=== PATIENT | female | born 1965 | race Hispanic/Latino ===

== ENCOUNTER 2019-12-22 13:42 | Inpatient (IN) | payer MEDICAID, SELFPAY ==
[2019-12-22] MEDS ORDERED: Iopamidol-370 76% 500 ML 1 ML ONE (13:45)
--- NOTE | 2019-12-22 14:51 | RAD ---
EXAM: Chest one view: HISTORY: Shortness of breath swelling and distention of the abdomen COMPARISON: None FINDINGS: Heart size: Within normal limits. Lungs: Clear of acute process. No evidence for confluent pneumonia, pleural effusion, acute edema, or pneumothorax, or other signifi cant acute process. IMPRESSION: No significant acute intrathoracic disease.
[2019-12-22] MEDS ORDERED: Fentanyl 100 MCG/2 ML VIAL ONE (14:54)
[2019-12-22] MEDS ORDERED: Ondansetron PF 4 MG/2 ML Vial ONE (14:54)
[2019-12-22 14:56] LABS: #Eosinphils 0.1 thou/uL (0.0-0.7); #Lymphocytes 0.8 thou/uL (1.20-3.40); #Monocytes 0.4 thou/uL (0.11-0.59); #Neutrophils 1.7 thou/uL (1.40-6.50); %Basophils 0.2 % (0.0-1.0); %Eosinophils 4.4 % (0.0-10.0); %Lymphocytes 25.5 % (21.0-51.0); %Monocytes 14.5 % (0.0-10.0); %Neutrophils 55.4 % (42.0-75.0); Hemoglobin 11.3 g/dL (12.0-16.0); INR-International Normal Ratio 1.2; Mean Corpuscular HGB CONC 32.9 g/dL (32.0-36.0); Mean Corpuscular Hemoglobin 29.6 pg (27.0-31.0); Mean Corpuscular Volume 89.9 fL (78.0-98.0); Mean Platelet Volume 9.4 fL (7.4-10.4); Platelet Count 71 thou/uL (130-400); Prothrombin Time 15.6 SEC (12.0-14.7); RBC Distribution Width 14.5 % (11.5-14.5); Red Blood Cell (RBC) Count 3.81 mill/uL (4.20-5.40)
[2019-12-22 15:04] LABS: Platelet Morphology Comment Appears Decreased; RBC Morphology Normal
[2019-12-22 15:12] LABS: ALT (SGPT) 29 U/L (8-55); AST (SGOT) 41 U/L (5-34); Albumin 3.3 g/dL (3.5-5.0); Alkaline Phosphatase 143 U/L (40-110); Anion Gap 8 mmol/L (10-20); BUN (Urea Nitrogen) 14 mg/dL (9.8-20.1); Bilirubin, Total 1.3 mg/dL (0.2-1.2); Calc. Creatinine Clearance 0 mL/min (70-130); Calcium 8.9 mg/dL (7.8-10.44); Carbon Dioxide 27 mmol/L (22-29); Chloride 107 mmol/L (98-107); Estimated GFR-MDRD Greater than 90; Globulin 4.4 g/dL (2.4-3.5); Glucose 124 mg/dL (70-105); Lipase 30 U/L (8-78); Potassium 3.9 mmol/L (3.5-5.1); Protein, Total 7.7 g/dL (6.0-8.3); Sodium 138 mmol/L (136-145)
[2019-12-22 15:35] LABS: Bacteria/HPF 4+ HPF (None Seen); Bilirubin Negative (Negative); Blood, Urine Negative (Negative); Clarity Clear (Clear); Glucose, Urine (Dipstick) 50 mg/dL (Negative); Leukocyte 75 Leu/uL (Negative); Mucous/LPF 1+ LPF (<2+); Nitrite 2+ (Negative); Protein, Urine (Dipstick) 30 mg/dL (Neg-Trace); RBC/HPF 0-3 HPF (0-3); Urobilinogen Normal mg/dL (Less than 2)
--- NOTE | 2019-12-22 16:11 | CT ---
CT abdomen and pelvis with IV contrast HISTORY: Abdomen pain. Abdominal swelling. FINDINGS: At the right anterolateral lung base are 3 tiny nonspecific subpleural nodules without calc ification. Single tiny nonspecific subpleural nodule at the right posterolateral lung base. Gallbladder is distended and contains irregular hyperdense material. No significant gallbladder wall thickening. Liver is somewhat small with a nodular contour. Spleen measures up to 13.1 cm. Small amount of free fluid throughout the abdomen and pelvis. No evidence of bowel obstruction. Nonenlarged reactive appearing lymph nodes throughout the retroperi toneum. Urinary bladder is decompressed. Degenerative changes throughout the lumbar spine. IMPRESSION: Cirrhosis. Findings of portal venous hypertension include splenomegaly and small amount o f ascites. The fluid does not significantly contribute to the abdominal distention. Cholelithiasis.
[2019-12-22 18:46] VITALS: BMI 31.8
[2019-12-22] MEDS ORDERED: Morphine 2 MG/ML SYRINGE SLOW IVP SCH (20:45)
[2019-12-22] MEDS ORDERED: hydrALAZINE 20 MG/ML VIAL SLOW IVP PRN (21:39)
[2019-12-22] MEDS ORDERED: Dextrose 50% Abboject 50 ML SYRINGE SLOW IVP PRN (21:39)
[2019-12-22] MEDS ORDERED: Ondansetron PF 4 MG/2 ML Vial IVP PRN (21:39)
[2019-12-22] MEDS ORDERED: Senokot S 8.6-50 MG TAB PO PRN (21:39)
[2019-12-22] MEDS ORDERED: Dextrose 5% in Water 1,000 ML IV PRN (21:39)
[2019-12-22] MEDS ORDERED: Bisacodyl 10 MG SUPP PR PRN (21:39)
[2019-12-22] MEDS ORDERED: HumaLOG 300 UNITS/3 ML VIAL SC PRN (21:39)
[2019-12-22] MEDS ORDERED: Polyethylene Glycol 3350 17 GM Packet PO SCH (22:00)
[2019-12-22] MEDS: Ondansetron ODT 4 MG TAB PO PRN (22:36)
--- NOTE | 2019-12-23 01:19 | HP ---
PRIMARY CARE PROVIDER: Dr. Perales in [place], [place]. CHIEF COMPLAINT: Abdominal distention. HISTORY OF PRESENT ILLNESS: This is a 54-year-old female, who presents to [facility] Emergency Department complaining of approximate 2-month history of progressive abdominal pain, distention, and bloating. The patient states the symptoms began somewhat insidiously with increasing abdominal distention that progressed, worsening in the last 24 hours. The patient denied any prominent diarrhea, fever, chills, documented travel history, or family members with similar symptoms. The patient took [id number] medication for attempted relief, but the patient states that the abdominal distention became to such an extent she was having difficulty talking due to shortness of breath and difficulty eating and losing her appetite. The patient feels like her last documented weight was in the 180 range at her last primary care provider's visit in the last month and was documented nearly 200 pounds during this admission. The patient denies any difficulty with urination, but admits to constipation with difficulty having bowel movements. The patient denied any hematemesis or hemoptysis or melena. The patient does admit to long-standing diabetes mellitus, treated with metformin over a 10-year period. The patient denied any history of viral exposure, hepatitis, or previous blood transfusions. The patient does admit to drinking alcohol on approximate weekly basis, but not too excess. The patient denies any strong family history of liver disorders or colon cancer. The patient denied any nausea, vomiting, or diarrhea. In the emergency room, the patient underwent general evaluation including CT imaging of the abdomen and pelvis showing evidence of cirrhotic changes to the liver with small amount of ascites. The patient was also noted with splenomegaly. Screening metabolic survey showed mild transaminitis and the patient was treated with fentanyl and Zofran in the emergency room. The patient was referred to the Hospitalist Service for further evaluation for potential cirrhosis. PAST MEDICAL HISTORY: 1. Diabetes mellitus type 2, on oral hypoglycemics with metformin. 2. Hypertension, treated with lisinopril. PAST SURGICAL HISTORY: Status post left rotator cuff repair. CURRENT MEDICATIONS: 1. Lisinopril 40 mg p.o. daily. 2. Metformin 500 mg p.o. b.i.d. ALLERGIES: TO TRAMADOL AND TYLENOL WITH CODEINE. FAMILY HISTORY: Mother with hypertension and diabetes mellitus. SOCIAL HISTORY: Resides in [place], [place]. Single. Accompanied by her significant other. No tobacco or illicit drug use. Drinks socially. Works at a convenience store. REVIEW OF SYSTEMS: CONSTITUTIONAL: Negative for weight loss or gain, ability to conduct usual activities. SKIN: Negative for rash, itching. EYES: Negative for double vision, pain. ENT/MOUTH: Negative for nose bleeding, neck stiffness, pain, tenderness. CARDIOVASCULAR: Negative for palpitations, dyspnea on exertion, orthopnea. RESPIRATORY: Negative for shortness of breath, wheezing, cough, hemoptysis, fever or night sweats. GASTROINTESTINAL: Negative for poor appetite, abdominal pain, heartburn, nausea, vomiting, constipation, or diarrhea. GENITOURINARY: Negative for urgency, frequency, dysuria, nocturia. MUSCULOSKELETAL: Negative for pain, swelling. NEUROLOGIC/PSYCHIATRIC: Negative for anxiety, depression. ALLERGY/IMMUNOLOGIC: Negative for skin rash, bleeding tendency. Otherwise negative except as stated per HPI. PHYSICAL EXAMINATION: VITAL SIGNS: On admission, blood pressure 161/89, pulse 72, respiratory rate 18, temperature 98.1 degrees Fahrenheit, O2 saturation 99% on room air. GENERAL APPEARANCE: This is a 54-year-old female, alert and oriented x3, pleasant, responsive, in no acute distress. HEENT: Pupils are equal, round, reactive to light and accommodation. Extraocular muscles are intact. No scleral icterus. No conjunctival injection. Nares patent. OP is clear. Teeth in fair repair. NECK: Supple. No cervical adenopathy. No thyromegaly. No carotid bruits. No JVD appreciated. Cervical spine with full active and passive range of motion. No meningeal signs noted. CHEST: Lungs are clear to auscultation bilaterally. CARDIOVASCULAR: S1, S2 without noted murmur, rub, or gallop. ABDOMEN: Distended with tenderness to palpation diffusely. Landmarks difficult to palpate due to patient's body habitus. No rebound or guarding noted. Bowel sounds are positive in all 4 quadrants. EXTREMITIES: Warm and dry with fair turgor. Mild edema to the lower extremities bilaterally to the proximal shins. Pulses palpable distally at the dorsalis pedis, posterior tibial, and popliteal arteries bilaterally. Capillary refill less than 2 seconds. NEUROLOGIC: Cranial nerves 2 through 12 are grossly intact. No focal or lateralizing signs appreciated. PERTINENT LABORATORY AND X-RAY FINDINGS: Sodium 138, potassium 3.9, chloride 107, CO2 of 27, BUN 14, creatinine 0.67, glucose 124, calcium 8.9, total bilirubin 1.3, AST 41, ALT of 29, alkaline phosphatase 143. Troponin I negative x1. BNP 77. Albumin 3.3. Lipase 30. TSH 0.79. CBC showed a white blood cell count of 3.0, hemoglobin 11.3, hematocrit 34.3, platelet count 71,000 with 55% neutrophils. PT 15.6, INR 1.2, PTT 34.0. Urinalysis positive for protein, 2+ nitrite, and leukocyte esterase positive, 4 to 6 squamous epithelial cells per high-power field. CT of the abdomen and pelvis dated 12/22/2019 showed liver contour concerning for cirrhosis. Portal venous hypertension noted with splenomegaly and small amount of ascites. Portable chest x-ray dated 12/22/2019 showed no acute cardiopulmonary process. EKG dated 12/22/2019 by my interpretation shows sinus mechanism with heart rates in the 60s. Normal R-wave progression noted in the precordial leads. Normal axis. No acute ST-T wave changes appreciated. ASSESSMENT AND PLAN: 1. New onset cirrhosis. Suspected given CT imaging of the abdomen and pelvis. We will check hepatitis A, B, and C panel, ammonia, folate, B12, hemoglobin A1c, and lipid profile. We will consult GI Service in the a.m. for any further recommendations and consideration for liver biopsy. Hold metformin. 2. Transaminitis. Suspect secondary to #1. See #1 above for management. Hold metformin. Repeat liver function tests in the a.m. 3. Thrombocytopenia. Suspect secondary to #1. Avoid anticoagulation and NSAIDs. Repeat platelet count in the a.m. 4. Diabetes mellitus type 2. Insulin sliding scale for reflexive coverage. Check A1c level in the a.m. Serial Accu-Cheks before meals and at bedtime. ADA diet. 5. Hypertension. Resume lisinopril 40 mg p.o. daily. Serial blood pressure monitoring. 6. Prophylaxis. SCDs while in bed. Pepcid 20 mg p.o. b.i.d. CODE STATUS: Full. Surrogate medical decision maker is Leslye Tsang. Job ID: [id number]
[2019-12-23 04:12] LABS: Hemoglobin A1c 6.3 % (4.0-6.0)
[2019-12-23 04:17] LABS: Eosinophils 7 % (0-10); Hemoglobin 10.5 g/dL (12.0-16.0); Lymphocytes 37 % (21-51); MDiff Complete? YES; Mean Corpuscular HGB CONC 33.5 g/dL (32.0-36.0); Mean Corpuscular Hemoglobin 29.9 pg (27.0-31.0); Mean Corpuscular Volume 89.4 fL (78.0-98.0); Mean Platelet Volume 9.7 fL (7.4-10.4); Monocytes 15 % (0-10); Neutrophil 41 % (42-75); Platelet Count 60 thou/uL (130-400); Platelet Morphology Comment Appears Decreased; RBC Distribution Width 14.4 % (11.5-14.5)
[2019-12-23 04:26] LABS: ALT (SGPT) 25 U/L (8-55); AST (SGOT) 38 U/L (5-34); Albumin 2.8 g/dL (3.5-5.0); Alkaline Phosphatase 118 U/L (40-110); Anion Gap 9 mmol/L (10-20); BUN (Urea Nitrogen) 14 mg/dL (9.8-20.1); Bilirubin, Total 1.1 mg/dL (0.2-1.2); Calc. Creatinine Clearance 135 mL/min (70-130); Calcium 8.3 mg/dL (7.8-10.44); Carbon Dioxide 23 mmol/L (22-29); Cardiac Risk 4.6 (Less than 4.5); Chloride 109 mmol/L (98-107); Cholesterol 158 mg/dl (< 200 Desired); Estimated GFR-MDRD Greater than 90; Globulin 3.9 g/dL (2.4-3.5); Glucose 124 mg/dL (70-105); HDL Cholesterol 34 mg/dL (>60 Neg Risk); LDL Cholesterol, Calculated 99 mg/dL; Potassium 3.9 mmol/L (3.5-5.1); Protein, Total 6.7 g/dL (6.0-8.3); Sodium 137 mmol/L (136-145); Triglycerides 125 mg/dL (Less than 150)
[2019-12-23 04:50] LABS: HBCM Index 0.13 S/CO (0-0.79); HBSAg Index 0.23 S/CO (0-0.99); Hep A IgM AB Non-Reactive (NonReactive); Hep A IgM S/CO 0.27 S/CO (0-0.79); Hep B Surf Ag Non-Reactive S/CO (NonReactive); Hep C IgG Ab Non-Reactive (NonReactive); Hep C Index 0.18 S/CO (0-0.79); Hepatitis B Core IgM Abs Non-Reactive (NonReactive)
[2019-12-23] MEDS: Morphine 2 MG/ML SYRINGE SLOW IVP PRN ×2 (05:02→19:52)
--- NOTE | 2019-12-23 08:19 | ULT ---
HEPATIC ULTRASOUND WITH COLOR AND SPECTRAL DOPPLER IMAGING: HISTORY: Ascites, abdominal pain. FINDINGS: Fairly extensive ascites. Very abnormal heterogeneous echotexture of the liver with peripheral nodul arity certainly concerning for cirrhosis. Multiple gallstones in the gallbladder with a positive Mur phy's sign. Common bile duct 0.4 cm. Vascular duplex demonstrates antegrade hepatic and portal venous flow. IMPRESSION: 1. Abnormal liver, evidence for cirrhosis. 2. Ascites. 3. Multiple cholelithiasis with positive Briceno's sign. Antegrade hepatic and portal venous flow. POS: TPC
[2019-12-23] MEDS: Lisinopril 10 MG TAB PO SCH (08:23)
[2019-12-23] MEDS: Famotidine 20 MG TAB PO SCH ×2 (08:24→19:53)
[2019-12-23] MEDS: diphenhydrAMINE 50 MG CAP PO PRN (08:24)
[2019-12-23] MEDS ORDERED: Polyethylene Glycol 3350 17 GM Packet PO SCH (09:00)
[2019-12-23] MEDS ORDERED: Albumin 25% 25 GM/100 ML BOT IVPB SCH (12:46)
[2019-12-23] MEDS ORDERED: Sodium Bicarbonate 2.5 MEQ/5 ML VIAL ONE (13:23)
[2019-12-23] MEDS ORDERED: Lidocaine 1% PF 5 ML VIAL ONE (13:23)
--- NOTE | 2019-12-23 13:53 | ULT ---
PREPROCEDURE DIAGNOSIS: Ascites POST PROCEDURE DIAGNOSIS: Same PROCEDURE: Ultrasound-guided paracentesis FIELD CANE SCALER: [place]ha ANESTHESIA: 7 mL of buffered 1% lidocaine. SPECIMEN: 2.6 L of straw-colored fluid TECHNIQUE: Prior to the procedure, the risks and benefits of an ultrasound guided paracentesis were explained to the patient which consented fully to the procedure. The area of the largest fluid collection was seen in the right mid abdomen. This area was prepped and draped in the usual sterile fashion. Lidocaine was used to anesthetize the skin and soft tissues down towards the peritoneal cavity. The p eritoneum was anesthetized. A small skin incision was made for passage of a 15 cm Next 1 Interactive needle and catheter. This device was then placed using ultrasound guidance into the peritoneal cavity. The needle was removed after return of fluid. The catheter was then connected to multiple Vacutainer bottles. A total of 2.6 L was removed. No residual fluid is seen in this region of the peritoneal cavity. IMPRESSION: Status post successful ultrasound-guided paracentesis
--- NOTE | 2019-12-23 14:14 | PDOC.HOSPP ---
- Subjective Encounter Date: 12/23/19 Encounter Time: 08:00 Subjective: no overnight events. This morning, feels about the same regarding abdominal distention and pressure, and complains of mild shortness of breath. Has no other complains. - Objective Vital Signs & Weight: Vital Signs (12 hours) Temp Pulse Resp BP BP BP Pulse Ox 12/23/19 11:54 98.5 F 66 18 119/58 L 97 12/23/19 08:23 136/74 12/23/19 08:00 97.8 F 69 18 136/74 69 L 12/23/19 04:00 97.9 F 66 16 162/72 H 97 Weight Admit Weight 191 lb 2 oz Weight 191 lb 2 oz I&O: 12/22/19 12/23/19 12/24/19 06:59 06:59 06:59 Intake Total 360 Balance 360 Result Diagrams: 12/23/19 03:56 12/23/19 03:56 Additional Labs: Accuchecks 12/23/19 12/23/19 12/22/19 11:13 05:35 21:05 POC Glucose 124 H 126 H 161 H Hospitalist ROS - Review of Systems Constitutional: denies: fever, chills, sweats, weakness, malaise, other Respiratory: denies: cough, dry, shortness of breath, hemoptysis, SOB with excertion, pleuritic pain, sputum, wheezing, other Cardiovascular: denies: chest pain, palpitations, orthopnea, paroxysmal noc. dyspnea, edema, light headedness, other Gastrointestinal: denies: nausea, vomiting, abdominal pain, diarrhea, constipation, melena, hematochezia (complaints of abdominal pressure rather than pain) Genitourinary: denies: dysuria, frequency, incontinence, hematuria Skin: denies: rash Neurological: denies: weakness, numbness, incoordination, change in speech, confusion - Medication Medications: Active Medications Generic Name Dose Route Start Last Admin Trade Name Freq PRN Reason Stop Dose Admin Diphenhydramine HCl 50 mg 12/23/19 08:01 12/23/19 08:24 Benadryl PO 50 mg Q8H PRN Administration Itching & Insomnia Famotidine 20 mg 12/23/19 09:00 12/23/19 08:24 Pepcid PO 20 mg BID MAK Administration Lisinopril 30 mg 12/23/19 09:00 12/23/19 08:23 Zestril PO 30 mg DAILY MAK Administration Morphine Sulfate 2 mg 12/22/19 21:39 12/23/19 05:02 Morphine SLOW IVP 2 mg Q4H PRN Administration Abdominal Distention Ondansetron HCl 4 mg 12/22/19 21:39 12/22/19 22:36 Zofran Odt PO 4 mg Q6H PRN Administration Nausea/Vomiting Polyethylene Glycol 17 gm 12/23/19 09:00 12/23/19 09:00 Miralax PO Not Given DAILY MAK - Exam General Appearance: NAD, awake alert Eye: PERRL, anicteric sclera ENT: normocephalic atraumatic, moist mucosa Neck: no JVD Heart: RRR, no murmur, no gallops, no rubs Respiratory: CTAB, no wheezes, no rales, no ronchi, normal chest expansion, no tachypnea Gastrointestinal: soft, non-tender, normal bowel sounds Gastrointestinal - other findings: shifting dulness, significantly distended Extremities: 1+ LE edema Neurological: cranial nerve grossly intact, no weakness, no focal deficits, no new deficit Musculoskeletal: normal tone, normal strength, no muscle wasting Psychiatric: normal affect, normal behavior, A&O x 3 Hosp A/P - Plan #cirrhosis #ascites -no conern for SBP -complains of progressively worsening shortness of breath -hepatitis panel -ve -MELD score 9 Plan: -therapeutic and diagnostic paracentesis -supplement 8g albumin per 1L ascitic fluid -f/u on serologic studies #hypertension -well cotrolled on home meds; will continue #T2DM currently well controlled on mild sliding scale
[2019-12-23] MEDS: Ondansetron ODT 4 MG TAB PO PRN (15:17)
[2019-12-23 15:44] LABS: RBC Count-Automated (BF) 1800 /cumm; WBC/Nucleated-Auto (BF) 195 uL
[2019-12-23 15:51] LABS: BF Color Yellow; Body Fluid Source Ascites Body Fluid; Clarity Hazy (Clear); Tube # EDTA
[2019-12-23 16:11] LABS: BF Segmented Neutrophils 12 %; Cell Count Non Hematic 45 %; Lymphocytes 43 %
[2019-12-23] MEDS: HumaLOG 300 UNITS/3 ML VIAL SC PRN (17:59)
--- NOTE | 2019-12-23 20:11 | CON ---
DATE OF CONSULTATION: 12/23/2019 CHIEF COMPLAINT: Abdominal swelling. HISTORY OF PRESENT ILLNESS: Ms. Schaefer is a 54-year-old woman, who has had intermittent abdominal swelling and bloating for the last couple of months. She has had no nausea or vomiting. She does have some constipation lately, but no diarrhea. No blood in the stool. She has had some nausea and decreased appetite when her abdomen becomes more swollen. Some fatigue and itchiness. She has had nose bleeds lately around 3 times per week. She has no known prior history of cirrhosis. She had paracentesis performed today for the first time and feels much better after that. She proceeded to eat a bucket of [employer] Chicken and Sprite and has a snickers at the bedside. She drinks around 10 beers once per week. She has had no blood in the stool or black stools. PAST MEDICAL HISTORY: Diabetes mellitus and hypertension. PAST SURGICAL HISTORY: She had a possible partial hysterectomy. She had left rotator cuff surgery. FAMILY HISTORY: Negative for GI malignancy. SOCIAL HISTORY: She smokes half a pack once per week when she drinks beer. She drinks 10 beers once per week. No drugs. ALLERGIES: TRAMADOL, TYLENOL NO. 3. MEDICATIONS: Prior to admission: 1. Metformin. 2. Lisinopril. REVIEW OF SYSTEMS: Negative x10 systems reviewed, except as stated in the history of present illness. PHYSICAL EXAMINATION: VITAL SIGNS: Blood pressure 119/58, pulse 66, and temperature 98.5. GENERAL: She is in no acute distress. Alert and oriented x3. HEENT: Eyes have no scleral icterus. Oropharynx is clear without lesions. No cervical or supraclavicular lymphadenopathy. LUNGS: Clear to auscultation bilaterally. HEART: Regular rate and rhythm without murmur. ABDOMEN: Soft, mildly distended at this point after paracentesis. Bowel sounds are present. She has mild tenderness diffusely. EXTREMITIES: No lower extremity edema. Cranial nerves are grossly intact. She has no asterixis on neurological exam. LABORATORY DATA: White blood cell count 2.0, hemoglobin 10.5, platelets 60. Creatinine 0.65. Hemoglobin A1c is 6.3, AST 30, ALT 25, alkaline phosphatase 118, albumin 3.0, ammonia 103. INR 1.2. Acute viral hepatitis screen is negative. IMAGING: CT scan showed a shrunken nodular liver. Signs of portal hypertension are noted. Abdominal ultrasound did show cholelithiasis. She had ultrasound-guided paracentesis today with 2.6 L of ascites removed. IMPRESSION: 1. Cirrhosis of the liver, most likely secondary to alcohol. We will send additional labs to evaluate for other causes of liver disease. We will send iron saturation and autoimmune markers and alpha-1 antitrypsin level. Viral hepatitis screen is negative. Complete alcohol cessation is recommended. 2. New onset ascites. Fluid is being sent for cell count with differential and culture. We discussed low-salt diet and diuretics at length. 3. Check hepatitis A total antibody and hepatitis B surface antibody. If these are negative, then vaccinate for hepatitis A and hepatitis B. 4. Hepatoma screening. Ultrasound was negative for mass currently. We will check alpha fetoprotein. 5. Mildly elevated ammonia level. She does not appear clinically encephalopathic at this point. She has had problems with constipation lately and we will add lactulose to treat. RECOMMENDATIONS: 1. Labs as stated above. 2. Follow up in GI clinic. Upper endoscopy for varices screening can be scheduled at that time, as well as colonoscopy for colon cancer screening. 3. Salt restriction. 4. Furosemide 20 mg daily and spironolactone 50 mg daily. 5. Alcohol cessation. Job ID: [id number]
[2019-12-24] MEDS: diphenhydrAMINE 50 MG CAP PO PRN ×2 (01:06→10:48)
[2019-12-24 04:47] LABS: Anion Gap 10 mmol/L (10-20); BUN (Urea Nitrogen) 15 mg/dL (9.8-20.1); Calc. Creatinine Clearance 131 mL/min (70-130); Calcium 8.4 mg/dL (7.8-10.44); Carbon Dioxide 25 mmol/L (22-29); Chloride 107 mmol/L (98-107); Estimated GFR-MDRD Greater than 90; Glucose 143 mg/dL (70-105); Iron 37 ug/dL (50-170); Iron Binding Capacity, Total 311 mcg/dL (265-497); Magnesium 1.6 mg/dL (1.6-2.6); Sodium 138 mmol/L (136-145)
[2019-12-24 04:49] LABS: Band 6 % (5-11); Eosinophils 8 % (0-10); Hemoglobin 9.9 g/dL (12.0-16.0); Hypochromia SLIGHT = 6-15 cells (100X) (0-5/hpf); Lymphocytes 24 % (21-51); MDiff Complete? YES; Mean Corpuscular HGB CONC 33.4 g/dL (32.0-36.0); Mean Corpuscular Hemoglobin 29.9 pg (27.0-31.0); Mean Corpuscular Volume 89.6 fL (78.0-98.0); Monocytes 10 % (0-10); Neutrophil 52 % (42-75); Platelet Count 51 thou/uL (130-400); Platelet Morphology Comment Appears Decreased; RBC Distribution Width 14.3 % (11.5-14.5); Red Blood Cell (RBC) Count 3.31 mill/uL (4.20-5.40)
[2019-12-24 05:04] LABS: Hep B Surf AB Non-Reactive (NonReactive)
[2019-12-24] MEDS: Spironolactone 25 MG TAB PO SCH (09:34)
[2019-12-24] MEDS: Furosemide 20 MG TAB PO SCH (09:34)
[2019-12-24] MEDS: Lisinopril 10 MG TAB PO SCH (09:35)
[2019-12-24] MEDS: Famotidine 20 MG TAB PO SCH ×2 (09:35→20:02)
[2019-12-24] MEDS ORDERED: traMADol HCl 50 MG TAB PO SCH (10:00)
--- NOTE | 2019-12-24 12:29 | PDOC.HOSPP ---
- Subjective Encounter Date: 12/24/19 Encounter Time: 09:05 Subjective: states that she has lots of pain, works as a cook. abd still distended. - Objective Vital Signs & Weight: Vital Signs (12 hours) Temp Pulse Resp BP BP Pulse Ox 12/24/19 09:35 131/70 12/24/19 07:37 98.7 F 65 18 131/70 96 Weight Admit Weight 191 lb 2 oz Weight 191 lb 2 oz I&O: 12/23/19 12/24/19 12/25/19 06:59 06:59 06:59 Intake Total 360 Balance 360 Result Diagrams: 12/24/19 04:05 12/24/19 04:05 Additional Labs: Accuchecks 12/24/19 12/23/19 12/23/19 10:56 19:52 15:38 POC Glucose 217 H 191 H 236 H Hospitalist ROS - Medication Medications: Active Medications Generic Name Dose Route Start Last Admin Trade Name Freq PRN Reason Stop Dose Admin Albumin Human 0 gm 12/23/19 12:46 12/23/19 19:52 Albumin 25% IVPB 12/24/19 12:47 25 gm ASDIR MAK Administration Diphenhydramine HCl 50 mg 12/23/19 08:01 12/24/19 10:48 Benadryl PO 50 mg Q8H PRN Administration Itching & Insomnia Famotidine 20 mg 12/23/19 09:00 12/24/19 09:35 Pepcid PO 20 mg BID MAK Administration Furosemide 20 mg 12/24/19 09:00 12/24/19 09:34 Lasix PO 20 mg DAILY MAK Administration Insulin Human Lispro 0 units 12/22/19 21:39 12/23/19 17:59 Humalog SC 3 unit .MILD SLIDING SCALE PRN Administration Mild Correctional Scale Lactulose 20 gm 12/24/19 09:00 12/24/19 09:36 Lactulose PO 20 gm DAILY MAK Administration Lisinopril 30 mg 12/23/19 09:00 12/24/19 09:35 Zestril PO 30 mg DAILY MAK Administration Morphine Sulfate 2 mg 12/22/19 21:39 12/23/19 19:52 Morphine SLOW IVP 2 mg Q4H PRN Administration Abdominal Distention Ondansetron HCl 4 mg 12/22/19 21:39 12/23/19 15:17 Zofran Odt PO 4 mg Q6H PRN Administration Nausea/Vomiting Spironolactone 50 mg 12/24/19 09:00 12/24/19 09:34 Aldactone PO 50 mg QAM MAK Administration - Exam General Appearance: NAD, awake alert ENT: normocephalic atraumatic Neck: supple Heart: RRR Respiratory: CTAB Gastrointestinal: normal bowel sounds, no bruit, no guarding, no rigidity, distended Extremities: no cyanosis Neurological: cranial nerve grossly intact Psychiatric: normal affect Hosp A/P - Plan #cirrhosis #ascites -no conern for SBP -complains of progressively worsening shortness of breath -hepatitis panel -ve -MELD score 9 Plan: -therapeutic and diagnostic paracentesis -supplement 8g albumin per 1L ascitic fluid -f/u on serologic studies #hypertension -well cotrolled on home meds; will continue #T2DM currently well controlled on mild sliding scale still has sig abd distention will try to see if she can get another therapeutic paracentesis prior to dc Headache and generalized bodyache --avoid too much tylenol -fioricet prn. GI note reviewed poss dc in am.
--- NOTE | 2019-12-24 13:18 | ULT ---
Sonogram abdomen limited HISTORY: Abdominal distention. Evaluate for free fluid. FINDINGS: Sonographic survey shows minimal fluid within the left lower quadrant. Other quadrant shows no significant fluid. IMPRESSION: Minimal ascites. Insufficient volume for safe drainage.
[2019-12-24] MEDS: Ibuprofen 200 MG TAB PO PRN (16:06)
[2019-12-24] MEDS ORDERED: Fioricet 325/50/40 mg Tablet PO PRN (16:23)
[2019-12-24] MEDS ORDERED: traMADol HCl 50 MG TAB PO PRN (18:00)
[2019-12-24] MEDS: Vancomycin HCl 1.75 GM in Sodium Chloride 0.9% 500 ML IVPB SCH (18:12)
--- NOTE | 2019-12-24 20:03 | PRG ---
DATE OF SERVICE: 12/24/2019 SUBJECTIVE: Ms. Schaefer has no acute complaints. No abdominal pain. OBJECTIVE: VITAL SIGNS: Temperature 98.7, pulse 65, blood pressure 131/70. GENERAL: She is in no acute distress. Alert and oriented x3. LUNGS: Clear to auscultation bilaterally. HEART: Regular rate and rhythm without murmur. ABDOMEN: Mildly distended with ascites, but not tense. Bowel sounds are present. EXTREMITIES: No lower extremity edema. LABORATORY DATA: White blood cell count 2.0, hemoglobin 9.9, platelets 51,000. INR 1.2. Creatinine 0.67. IMPRESSION: 1. Cirrhosis of the liver, likely secondary to alcohol. Await labs for other causes of liver disease. This can be followed up in the office. 2. New onset ascites. Her fluid white blood cell count is not elevated. Her culture grew gram-positive cocci site, which I suspect is likely a skin contaminant. There were no white blood cells in the fluid on the Gram stain. She has been started empirically on vancomycin. RECOMMENDATIONS: 1. Salt restricted diet. 2. Furosemide 20 mg p.o. daily and spironolactone 50 mg p.o. daily. 3. If the fluid culture comes back showing common skin contaminant then I would discontinue antibiotics as I think it is highly unlikely that she actually has SBP. 4. If a GI organism or enterococcus is identified, then she should complete a 5-day course of antibiotics for SBP. 5. I will sign off for now. Follow up in GI Clinic for further management of her cirrhosis. Job ID: [id number]
[2019-12-24] MEDS ORDERED: Vancomycin HCl 1 GM in Premix Bag 1 BAG IVPB SCH (21:00)
[2019-12-25] MEDS: Vancomycin HCl 1.75 GM in Sodium Chloride 0.9% 500 ML IVPB SCH ×2 (06:07→18:06)
[2019-12-25] MEDS: Lisinopril 10 MG TAB PO SCH (08:41)
[2019-12-25] MEDS: Famotidine 20 MG TAB PO SCH ×2 (08:42→20:23)
[2019-12-25] MEDS: Furosemide 20 MG TAB PO SCH (08:42)
[2019-12-25] MEDS: Spironolactone 25 MG TAB PO SCH (08:43)
[2019-12-25] MEDS: HumaLOG 300 UNITS/3 ML VIAL SC PRN ×2 (11:37→17:40)
--- NOTE | 2019-12-25 13:22 | PDOC.HOSPP ---
- Subjective Encounter Date: 12/25/19 Encounter Time: 12:35 Subjective: pt doing well, headache better, no adb pain. blood sharri done explained poss dc after sharri results back. - Objective Vital Signs & Weight: Vital Signs (12 hours) Temp Pulse Resp BP BP Pulse Ox 12/25/19 08:41 129/75 12/25/19 08:00 99 12/25/19 07:42 98.4 F 70 18 129/75 99 Weight Admit Weight 191 lb 2 oz Weight 191 lb 2 oz I&O: 12/24/19 12/25/19 12/26/19 06:59 06:59 06:59 Intake Total 360 Balance 360 Result Diagrams: 12/24/19 04:05 12/24/19 04:05 Additional Labs: Accuchecks 12/25/19 12/25/19 12/24/19 11:01 05:40 21:21 POC Glucose 176 H 134 H 171 H 12/24/19 16:19 POC Glucose 144 H Hospitalist ROS - Medication Medications: Active Medications Generic Name Dose Route Start Last Admin Trade Name Freq PRN Reason Stop Dose Admin Acetaminophen/Butalbital/Caffeine 1 tab 12/24/19 16:23 12/25/19 09:31 Fioricet PO 12/29/19 16:24 1 tab Q6H PRN Administration Pain Diphenhydramine HCl 50 mg 12/23/19 08:01 12/24/19 10:48 Benadryl PO 50 mg Q8H PRN Administration Itching & Insomnia Famotidine 20 mg 12/23/19 09:00 12/25/19 08:42 Pepcid PO Not Given BID MAK Furosemide 20 mg 12/24/19 09:00 12/25/19 08:42 Lasix PO 20 mg DAILY MAK Administration Vancomycin HCl 1.75 gm/ Sodium 500 mls @ 250 mls/hr 12/24/19 18:00 12/25/19 06:07 Chloride IVPB 500 mls 0600,1800 MAK Administration Ibuprofen 400 mg 12/22/19 21:39 12/24/19 16:06 Motrin PO 400 mg Q4H PRN Administration Fever > 101 Insulin Human Lispro 0 units 12/22/19 21:39 12/25/19 11:37 Humalog SC 2 unit .MILD SLIDING SCALE PRN Administration Mild Correctional Scale Lactulose 20 gm 12/24/19 09:00 12/25/19 08:43 Lactulose PO 20 gm DAILY MAK Administration Lisinopril 30 mg 12/23/19 09:00 12/25/19 08:41 Zestril PO 30 mg DAILY MAK Administration Morphine Sulfate 2 mg 12/22/19 21:39 12/23/19 19:52 Morphine SLOW IVP 2 mg Q4H PRN Administration Abdominal Distention Ondansetron HCl 4 mg 12/22/19 21:39 12/23/19 15:17 Zofran Odt PO 4 mg Q6H PRN Administration Nausea/Vomiting Spironolactone 50 mg 12/24/19 09:00 12/25/19 08:43 Aldactone PO 50 mg QAM MAK Administration - Exam General Appearance: awake alert Eye: PERRL Neck: supple Heart: RRR Respiratory: CTAB Gastrointestinal: normal bowel sounds Hosp A/P - Plan #cirrhosis #ascites -no conern for SBP -complains of progressively worsening shortness of breath -hepatitis panel -ve -MELD score 9 Plan: -therapeutic and diagnostic paracentesis -supplement 8g albumin per 1L ascitic fluid -f/u on serologic studies #hypertension -well cotrolled on home meds; will continue #T2DM currently well controlled on mild sliding scale still has sig abd distention will try to see if she can get another therapeutic paracentesis prior to dc Headache and generalized bodyache --avoid too much tylenol -fioricet prn. GI note reviewed acites sharri grew staph auerus --poss contamination -he.e need to r/o any blood borne infection as usually ascites grow enterococcus and not staph or strep [bugs from soft tiss/skin inf.. origin] -bl sharri done -await another 24hrs, if remained neg., then dc her home. no need for abx if bl sharri were negative.
[2019-12-25] MEDS: Morphine 2 MG/ML SYRINGE SLOW IVP PRN ×2 (13:26→21:16)
[2019-12-25] MEDS: diphenhydrAMINE 50 MG CAP PO PRN ×2 (13:26→21:16)
[2019-12-25 17:49] LABS: EliA Vaculitis New Method **** NEW METHOD ****; Mitochondrial Ab 1.9 U/mL (<4 Negative)
[2019-12-26] MEDS ORDERED: diphenhydrAMINE 25 MG CAP PO PRN (02:21)
[2019-12-26] MEDS: Famotidine 20 MG TAB PO SCH (08:55)
[2019-12-26] MEDS: Lisinopril 10 MG TAB PO SCH (08:55)
[2019-12-26] MEDS: Furosemide 20 MG TAB PO SCH (08:56)
[2019-12-26] MEDS: Spironolactone 25 MG TAB PO SCH (09:14)
[2019-12-26] MEDS: Ibuprofen 200 MG TAB PO PRN (11:50)
[2019-12-26 11:56] VITALS: BP 114/58; TEMP 98.8
--- NOTE | 2019-12-27 00:27 | DIS ---
DATE OF ADMISSION: 12/22/2019 DATE OF DISCHARGE: 12/26/2019 DISCHARGE DIAGNOSES: 1. Cirrhosis with ascites. 2. Hypertension. 3. Type 2 diabetes mellitus. 4. Alcoholic cirrhosis. DISCHARGE MEDICATIONS: 1. Lasix 40 mg daily. 2. Spironolactone 50 mg daily. 3. Lactulose 20 mg daily for 30 days. 4. Metformin 500 mg twice a day. PHYSICAL EXAMINATION: VITAL SIGNS: On the day of discharge, temp 98.6, pulse 67, blood pressure 131/ 72, saturating 97% on room air. GENERAL: The patient is alert and oriented x4, well developed, well nourished female, not in any acute distress. CARDIOVASCULAR: Regular rate and rhythm without murmurs, rubs, or gallops. LUNGS: Clear to auscultation bilaterally without wheezing, rales, or rhonchi. ABDOMEN: Mildly distended. She has good bowel sounds. EXTREMITIES: No traceable pitting edema. Consult with SARITA Srinivasan. HOSPITAL COURSE: Please refer to the history and physical and daily progress note for more details. This is a 54-year-old female with history of alcoholic cirrhosis, presented with ascites. We removed 2.5 L of fluid. Ascitic fluid grew Staph aureus, which seems to be a skin contaminant. We did a blood culture that was not growing any organisms. SARITA Magallanes, followed with us closely. She is clinically stable. Her ascitic fluid did not show any white blood cells, so this gram- positive cocci are likely skin contaminant. After the present issue, she was doing well. There is still mild to moderate abdominal distention. However, ultrasound did not reveal any fluid that can be tapped. The patient is started on appropriate medications including Lasix, spironolactone as well as lactulose, and she will be discharged with the same. DISCHARGE INSTRUCTIONS: Activity as tolerated. Salt restricted diet. Follow up with the primary care physician in one week. Follow up with Dr. Watson Reyes as needed. TIME SPENT: Discharge time took over 30 minutes. Job ID: [id number] [id number]
[2019-12-27 14:14] LABS: Smooth Muscle Total ABS 19 Units (0-19)
[2019-12-27 15:38] LABS: A1 Antitrypsin Phenotype Inter MS (.); Alpha-1-Antitrypsin 108 mg/dL (101-187)
== END 2019-12-26 12:50 | disposition home or self-care (01) | DRG 433 ==
LOC: ERS 13:42 → ONC 17:04 → 3SE 12-25 22:41
PROVIDERS: ADMIT Internal Medicine; ATTEND Internal Medicine
PROC: 0W9G3ZZ Drainage of Peritoneal Cavity, Percutaneous Approach (ICD-10-PCS; principal; 2019-12-23)
DX: K70.31 Alcoholic cirrhosis of liver with ascites (principal); F10.988 Alcohol use, unspecified with other alcohol-induced disorder; E11.9 Type 2 diabetes mellitus without complications; I10 Essential (primary) hypertension; D69.59 Other secondary thrombocytopenia; K59.00 Constipation, unspecified; R51 Headache; Z88.5 Allergy status to narcotic agent; Z79.84 Long term (current) use of oral hypoglycemic drugs; Z79.899 Other long term (current) drug therapy
CPT/HCPCS: 36415; 36416; 49083; 71045; 74177; 76705; 80048; 80053; 80061; 80074; 80202; 81003; 81015; 82042; 82103; 82104; 82105; 82140; 82274; 82607; 82746; 83036; 83516; 83540; 83550; 83690; 83735; 83880; 84157; 84443; 84484; 85007; 85025; 85027; 85060; 85610; 85730; 86706; 86708; 87040; 87070; 87077; 87205; 88112; 89051; 93005; 94760; 96374; 96375; J2001; J2270; J2405; J3010; J3370; J7050; P9047; Q0162; Q0163; Q9967